=== PATIENT | female | born 1995 | race Caucasian/White ===

== ENCOUNTER 2025-02-14 09:24 | Inpatient (IN) ==
--- NOTE | 2025-02-14 09:31 | Emergency Department Note ---
History of Present Illness General Chief complaint: Chest Pain Stated complaint: CHEST PAIN, LIGHT HEADED, SOB Time Seen by Provider: 02/14/25 09:30 History of Present Illness Maximum Pain Intensity: 2 This is a 29-year-old female who presents to the emergency department via private vehicle with complaints of "chest pain, shortness of breath, lightheaded". The patient notes about 1 month ago she had COVID-19. This did cause her to be much less active for a period of time. She states that she has had exertional dyspnea for some time but last evening around 7:30 PM began with lightheadedness, dizziness, vision change, chest pain, shortness of breath. She notes that shortness of breath was much worse than previous. She states that she was seen here in the ED, CT scan of the chest was performed and she was diagnosed with pulmonary emboli. She was started on oral Eliquis. The patient notes that she called to establish a follow up this morning with S and was referred back for bilateral Doppler studies and further assessment. The patient still notes some vision change. She does note dizziness and lightheadedness. The chest pain and shortness of breath are still present. The patient does also note bilateral leg pain. The patient does note that over the past month her shoe size went from a 9.5-11 and then back down to 9.5. She does take oral contraceptives noting history of PCOS. She notes history of anxiety and depression. She also notes history of sleep apnea. No known drug allergies. No pertinent surgical history. Home Medications Medication Instructions Recorded Confirmed Type apixaban 5 mg tablet (Eliquis) 5 mg PO BID #30 tabs 02/14/25 02/14/25 Rx cholecalciferol (vitamin D3) 50 50 mcg PO DAILY 02/14/25 02/14/25 History mcg (2,000 unit) capsule (Vitamin D3) desogestrel 0.15 mg-ethinyl 1 tab PO DAILY 02/14/25 02/14/25 History estradiol 0.03 mg tablet (Isibloom) desvenlafaxine succinate 25 mg 25 mg PO DAILY 02/14/25 02/14/25 History tablet,extended release 24 hr fluticasone propionate 50 1 spray intranasal BID PRN 02/14/25 02/14/25 History mcg/actuation nasal Congestion spray,suspension loratadine 10 mg tablet (Claritin) 10 mg PO DAILY PRN Congestion 02/14/25 02/14/25 History Allergies Allergy/AdvReac Type Severity Reaction Status Date / Time pollen extracts Allergy Intermediate ITCHY Verified 02/14/25 00:50 EYES, SNEEZING, CONGESTION eggplant Allergy Mild ITCHY Verified 02/14/25 00:48 TONGUE Past Med/Surg History Problem List (Updated 02/14/25 @ 22:53 by Hermelindo Hector PA-C) Blurred vision, bilateral (Acute) Pulmonary embolism (Acute) Chest pain (Acute) Social History Smoking Status: Never smoker Second Hand Exposure: No; Do You Dip or Chew Tobacco: No; Tobacco Cessation Education Requested by Patient: No Hx Alcohol Use: No Hx Substance Use: No Preferred Language: Hungarian Communication Ability: Effective Sample Maker Required: No Beliefs That Will Affect Care: None Current Living Situation: Other Current Living Situation Comment: With roomate Other Information That Helps Us Care for You: No Feels Safe at Home: Yes Safety Concerns: Feels Safe At This Time Review of Systems A total of 10 systems reviewed and were otherwise negative Physical Exam Vital Signs Vital Signs - 24 hr 02/14/25 09:26 02/14/25 09:41 02/14/25 09:49 Temperature 36.4 C L Temperature Source Temporal Artery Scan Pulse Rate 89 87 Pulse Rate [Apical] Pulse Rhythm Regular Respiratory Rate 18 24 Respiratory Effort / Characteristics SOB on Exertion Blood Pressure 157/87 H Blood Pressure [Right Arm] Blood Pressure Mean 110 Blood Pressure Mean [Right Arm] Pulse Oximetry 95 98 Oxygen Delivery Method Room Air Room Air Sepsis Recent Fever Within 48 Hours No Sepsis New/Unexplained Change in Mental Status No Sepsis Action Taken by Nursing No Action Required 02/14/25 10:20 02/14/25 11:28 02/14/25 11:28 Temperature Temperature Source Pulse Rate 86 94 H Pulse Rate [Apical] 92 H Pulse Rhythm Respiratory Rate 23 23 Respiratory Effort / Characteristics Blood Pressure 141/68 H Blood Pressure [Right Arm] 141/68 H Blood Pressure Mean 86 Blood Pressure Mean [Right Arm] 92 Pulse Oximetry 97 97 Oxygen Delivery Method Room Air Room Air Sepsis Recent Fever Within 48 Hours Sepsis New/Unexplained Change in Mental Status Sepsis Action Taken by Nursing 02/14/25 11:30 02/14/25 11:40 Temperature Temperature Source Pulse Rate 83 86 Pulse Rate [Apical] Pulse Rhythm Respiratory Rate 16 23 Respiratory Effort / Characteristics Blood Pressure 130/66 138/76 Blood Pressure [Right Arm] Blood Pressure Mean 83 95 Blood Pressure Mean [Right Arm] Pulse Oximetry 97 97 Oxygen Delivery Method Room Air Room Air Sepsis Recent Fever Within 48 Hours Sepsis New/Unexplained Change in Mental Status Sepsis Action Taken by Nursing VITAL SIGNS - Vital signs and nursing notes were reviewed. Hypertensive, otherwise stable and afebrile. GENERAL -29-year-old female appearing her stated age who is in no acute distress. Communicates well with provider and answers questions appropriately. SKIN - Without rashes. No meningeal or petechial rash. HEAD - NC/AT. EYES - PERRL with EOMI bilaterally. Sclera anicteric. EARS - No deformities of external structures noted on gross examination bilaterally. External auditory canals without discharge or otorrhea. Tympanic membranes pearly corbin without retraction or bulging. No fluid or purulent material visualized behind the TM. Handle of malleus, umbo, cone of light, pars tensa/flaccid all easily visualized. NOSE - Midline and without cyanosis. No epistaxis or purulent drainage noted. MOUTH/OROPHARYNX - Without perioral cyanosis. Buccal mucosa pink and moist and without leukoplakia. Tongue midline with equal elevation of palate bilaterally. No tonsillar hypertrophy, erythema, or exudates noted. Good dentition noted. NECK - Neck with FROM. Supple to palpation. No lymphadenopathy noted. No nuchal rigidity. LUNGS - Chest wall symmetric without accessory muscle use, intercostals retractions, or central cyanosis. Normal vesicular breath sounds CTA B/L. No wheezes, rales, or rhonchi appreciated. CARDIAC - RRR with S1/S2. No murmur, rubs, or gallops appreciated. ABDOMEN - Abdominal contour normal without pulsations or visible masses. BS normoactive all four quadrants. No tenderness, palpable masses, hepatosplenomegaly, or ascites noted. EXTREMITIES - No clubbing or peripheral cyanosis. +5/5 strength noted in UE/LE bilaterally. NEUROLOGIC - Cranial nerves II through XII grossly intact. PSYCH -alert, oriented and pleasant on exam Course Administered Medications Apixaban (Apixaban 5 Mg Tablet) 5 mg PO BID ERIC Stop: 03/16/25 20:59 Last Admin: 02/14/25 20:12 Dose: 5 mg Documented By: VK Discontinued Medications Apixaban (Apixaban 5 Mg Tablet) 5 mg PO ONE ONE Stop: 02/14/25 13:21 Last Admin: 02/14/25 13:53 Dose: 5 mg Documented By: CEF Acetaminophen (Ofirmev) 1,000 mg in 100 mls @ 400 mls/hr IV NOW STA Stop: 02/14/25 13:47 Last Infusion: 02/14/25 14:22 Dose: Infused Documented By: Admin: 02/14/25 13:55 Dose: 400 mls/hr Documented By: CEF Ioversol (Optiray 320 125ml) 120 ml IV ONCE ONE Stop: 02/14/25 11:05 Last Admin: 02/14/25 11:05 Dose: 120 ml Documented By: AMY Miscellaneous (Order Awaiting Action) 1 each N/A QS ERIC Stop: 03/16/25 15:59 Last Admin: 02/14/25 18:31 Dose: Not Given Documented By: [facility] Medical Decision Making Laboratory Data 02/14/25 16:24 02/14/25 16:24 Lab Results 02/14/25 Range/Units 09:48 WBC 10.30 (4.8-10.8) K/ul RBC 4.90 (4.20-5.40) M/uL Hgb 13.2 (12.0-16.0) g/dl Hct 40.9 (37.0-47.0) % MCV 83.5 (80.0-100.0) fL MCH 26.9 (25.0-34.0) pg MCHC 32.3 (32.0-36.0) g/dL RDW Std Deviation 39.6 (36.4-46.3) fL RDW Coeff of Filiberto 13.1 (11.5-14.5) % Plt Count 352 (130-400) K/uL MPV 9.6 (9.4-12.4) fL Immature Gran % (Auto) 0.5 % Neut % (Auto) 64.0 % Lymph % (Auto) 27.3 % [place] % (Auto) 6.6 % Eos % (Auto) 1.4 % Baso % (Auto) 0.2 % Neut # (Auto) 6.60 H (1.40-6.50) K/uL Lymph # (Auto) 2.81 (1.20-3.40) K/uL [place] # (Auto) 0.68 H (0.11-0.59) K/uL Eos # (Auto) 0.14 (0.00-0.50) K/uL Baso # (Auto) 0.02 (0.00-0.20) K/uL Immature Gran # (Auto) 0.05 (0.01-0.20) K/uL PT 10.3 (9.0-12.0) Seconds INR 1.0 (0.9-1.1) APTT 28 (21-31) Seconds PTT Ratio 1.0 Sodium 137 (136-145) mmol/L Potassium 4.1 (3.5-5.1) mmol/L Chloride 103 (98-107) mmol/L Carbon Dioxide 24 (21-32) mmol/L Anion Gap 10 (3-11) BUN 9 (6-23) mg/dl Creatinine 0.54 L (0.6-1.2) mg/dl Est Cr Clr Drug Dosing 227.8 ml/min eGFR 126.15 BUN/Creatinine Ratio 16.7 (10-20) Glucose 85 (70-99(Fasting)) mg/dl Calcium 9.6 (8.6-10.3) mg/dl Magnesium 2.0 (1.7-2.4) mg/dl Total Bilirubin 0.3 (0.2-1.0) mg/dl AST 14 (13-39) U/L ALT 15 (7-52) U/L Alkaline Phosphatase 60 (34-104) U/L Troponin I High Sens < 2.3 (0-14) pg/ml B-Natriuretic Peptide 8 (0-100) pg/ml Total Protein 7.5 (6.0-8.3) gm/dl Albumin 4.1 (3.4-5.0) gm/dl Globulin 3.4 (2.5-4.0) gm/dl Albumin/Globulin Ratio 1.2 (0.9-2) TSH 8.365 H (0.300-4.500) uIu/ml Free T4 0.82 (0.61-1.60) ng/dl HCG, Qual Negative (Negative) Lyme Disease Screen Negative (Negative) Imaging Data Radiologist's Impression: Head CTA 02/14/25 09:41 CT angio head wo/w CLINICAL HISTORY: dizziness, lightheadedness, vision change -PE COMPARISON STUDY: None FINDINGS: Noncontrast head CT: No intracranial hemorrhage seen. No mass effect, midline shift, or hydrocephalus. No skull fracture seen. Visualized paranasal sinuses and mastoid air cells are clear. CTA: The distal internal carotid arteries and vertebral arteries are patent. Basilar artery is patent. Anterior, middle, and posterior cerebral arteries are patent bilaterally. No intracranial aneurysm seen. Cerebral venous sinuses opacify normally. IMPRESSION: 1. No acute findings. 2. Unremarkable CTA of the brain. ACT 112: Negative or not required by law. Electronically signed by: Ranjan Terry M.D. 02/14/2025 11:26 AM Neck CTA 02/14/25 09:41 CT angio neck with con CLINICAL HISTORY: 29 years-old Female with dizziness, lightheadedness, vision change -PE. Acute dizziness COMPARISON STUDY: CTA head of same day TECHNIQUE: Following the IV administration of 120 mL of Optiray, CT angiogram of the neck was performed from the aortic arch to the skull base. Images are reviewed in the axial, sagittal, and coronal planes. 3-D MIPS images are created and assessed. IV contrast was administered without complication. All measurements were calculated based on NASCET criteria. A dose lowering technique was utilized adhering to the principles of ALARA. CT DOSE: 1240.92 mGy.cm FINDINGS: Three-vessel morphology of the thoracic aortic arch. Patency of the innominate and imaged subclavian arteries. The common and imaged internal carotid arteries are widely patent. The right vertebral artery is dominant. Vertebral arteries are widely patent. There is no aneurysm, dissection, high- grade stenosis or arterial occlusion. Lung apices are clear. Unremarkable soft tissues. No acute fracture. IMPRESSION:Unremarkable CTA of the neck. ACT 112: Negative or not required by law. The above report was generated using voice recognition software. It may contain grammatical, syntax or spelling errors. Electronically signed by: Davonte Juan M.D. 02/14/2025 11:44 AM Venous Doppler Study 02/14/25 09:41 BILATERAL LOWER EXTREMITY VENOUS DOPPLER CLINICAL HISTORY: Bilateral leg pain, Pulmonary embolism. COMPARISON STUDY: No previous studies for comparison. TECHNIQUE: Sonography of the deep venous system of the bilateral lower extremities was performed. Compression and augmentation were evaluated. FINDINGS: The bilateral common femoral, superficial femoral and popliteal veins were compressible. Augmentation was normal. Flow was shown within the deep calf vessels although the calf vessels were suboptimally assessed due to suboptimal penetration. IMPRESSION: Suboptimal evaluation of the calf vessels but no evidence of deep venous thrombus within the bilateral lower extremities. ACT 112: Negative or not required by law. Electronically signed by: Braydon Cardoza M.D. 02/14/2025 1:11 PM MDM Narrative Patient was seen and evaluated as above in room B04b. Review was performed of nursing notes and vital signs. I did review pertinent previous visits and patient history. After obtaining a thorough history and physical examination the above work up was performed. Patient presents to us today with the above symptoms. I did review the CT angio of the chest performed last evening which did show tiny subsegmental pulmonary emboli involving left lower pulmonary arteries. No evidence of heart strain by CTA. Patient returns for further assessment. She does have headache, dizziness, vision change which began around 7:30 PM last evening, around the same time as the chest pain and shortness of breath. On my assessment there are no focal deficits. NIHSS is 0. GCS is 15. Options of care were discussed with the patient. IV access was established. Labs were drawn. [id number]: I did call and speak to current reading radiologist, Dr. Cardoza. My plan is CTA head and neck with a Noncon head first. We will hold off on rescanning the chest at this time. EKG per my interpretation reveals normal sinus rhythm with sinus arrhythmia at rate of 85 bpm. QTc 416. QRS 78. No ST elevation on this rhythm tracing. I did compare this to the EKG from yesterday at 2247 HRS. No significant change was found. No leukocytosis or concerning anemia. Coags normal. No emergent metabolic disturbance. Troponin within normal range. BNP normal. hCG negative. TSH elevated with a normal free T4. Urinalysis does not reveal convincing evidence of infection, will note 1+ leukocytes and 1+ bacteria. Lyme screen negative. CT angios of the head and neck ordered to further assess for potential paradoxical embolus/further assess patient's dizziness/lightheadedness/headache and vision change. These returned essentially negative. I discussed options with the patient. At this time I do believe is reasonable to proceed with further evaluation and management in inpatient setting. Patient to benefit from TTE with bubble study and MRI brain if possible. Case discussed with hospitalist service. Please refer to further documentation regarding her stay. GCS: 15 In the evaluation and treatment of this patient the following differential diagnoses were entertained: CVA, paradoxical embolus, intracranial hemorrhage, NE, PE, heart failure, among others Impression & Plan Chest pain, Pulmonary embolism, Blurred vision, bilateral Discharge Plan Visit Data Chief Complaint: Chest Pain Stated Complaint: CHEST PAIN, LIGHT HEADED, SOB ED Provider: Colette Marlow ED Midlevel Provider: Hermelindo Hector Discharge Problem: Chest pain, Pulmonary embolism, Blurred vision, bilateral Patient Disposition: Admitted As Inpatient Condition: Good Discharge Instructions Interventions: ED Discharge Assessment Last Done: 02/14/25 15:00
[2025-02-14 10:00] LABS: Hematocrit (blood only) 40.9 % (37.0-47.0); Hemoglobin 13.2 g/dl (12.0-16.0); Immature Granulocytes # (auto) 0.05 K/uL (0.01-0.20); Immature Granulocytes % (auto) 0.5 %; Mean Corpuscular Hemoglobin 26.9 pg (25.0-34.0); Mean Corpuscular Volume 83.5 fL (80.0-100.0); Platelet Count 352 K/uL (130-400); RDW Standard Deviation 39.6 fL (36.4-46.3); Red Blood Count 4.90 M/uL (4.20-5.40); White Blood Count 10.30 K/ul (4.8-10.8)
[2025-02-14 10:22] LABS: Alanine Aminotransferase 15 U/L (7-52); Albumin Globulin Ratio 1.2 (0.9-2); Albumin Level 4.1 gm/dl (3.4-5.0); Alkaline Phosphatase 60 U/L (34-104); Anion Gap 10 (3-11); Bilirubin,Total 0.3 mg/dl (0.2-1.0); Blood Urea Nitrogen 9 mg/dl (6-23); Calcium 9.6 mg/dl (8.6-10.3); Carbon Dioxide 24 mmol/L (21-32); Chloride 103 mmol/L (98-107); Creatinine Clr Calc Pharmacy 227.8 ml/min; Globulin 3.4 gm/dl (2.5-4.0); Glucose 85 mg/dl (70-99(Fasting)); Magnesium 2.0 mg/dl (1.7-2.4); Potassium 4.1 mmol/L (3.5-5.1); Sodium 137 mmol/L (136-145); Total Protein 7.5 gm/dl (6.0-8.3)
[2025-02-14 10:29] LABS: Pregnancy Test, Serum Negative (Negative)
[2025-02-14 10:36] LABS: Thyroid Stimulating Hormone 8.365 uIu/ml (0.300-4.500)
[2025-02-14 10:41] LABS: INR 1.0 (0.9-1.1); Partial Thromboplastin Time 28 Seconds (21-31); Prothrombin Time 10.3 Seconds (9.0-12.0)
[2025-02-14] MEDS: OPTIRAY 320 125ml IV ONE (11:05)
[2025-02-14 11:11] LABS: T4 Free Thyroxine 0.82 ng/dl (0.61-1.60)
--- NOTE | 2025-02-14 11:27 | CT Scan Report ---
CT angio head wo/w CLINICAL HISTORY: dizziness, lightheadedness, vision change -PE COMPARISON STUDY: None FINDINGS: Noncontrast head CT: No intracranial hemorrhage seen. No mass effect, midline shift, or hydrocephalus . No skull fracture seen. Visualized paranasal sinuses and mastoid air cells are clear. CTA: The distal internal carotid arteries and vertebral arteries are patent. Basilar artery is patent . Anterior, middle, and posterior cerebral arteries are patent bilaterally. No intracranial aneurysm seen. Cerebral venous sinuses opacify normally. IMPRESSION: 1. No acute findings. 2. Unremarkable CTA of the brain. ACT 112: Negative or not required by law. Electronically signed by: Ranjan Terry M.D. 02/14/2025 11:26 AM
--- NOTE | 2025-02-14 11:46 | CT Scan Report ---
CT angio neck with con CLINICAL HISTORY: 29 years-old Female with dizziness, lightheadedness, vision change -PE. Acute di zziness COMPARISON STUDY: CTA head of same day TECHNIQUE: Following the IV administration of 120 mL of Optiray, CT angiogram of the neck was perform ed from the aortic arch to the skull base. Images are reviewed in the axial, sagittal, and coronal pl anes. 3-D MIPS images are created and assessed. IV contrast was administered without complication. Al l measurements were calculated based on NASCET criteria. A dose lowering technique was utilized adhe ring to the principles of ALARA. CT DOSE: 1240.92 mGy.cm FINDINGS: Three-vessel morphology of the thoracic aortic arch. Patency of the innominate and imaged s ubclavian arteries. The common and imaged internal carotid arteries are widely patent. The right vert ebral artery is dominant. Vertebral arteries are widely patent. There is no aneurysm, dissection, hig h-grade stenosis or arterial occlusion. Lung apices are clear. Unremarkable soft tissues. No acute fr acture. IMPRESSION:Unremarkable CTA of the neck. ACT 112: Negative or not required by law. The above report was generated using voice recognition software. It may contain grammatical, syntax o r spelling errors. Electronically signed by: Davonte Juan M.D. 02/14/2025 11:44 AM
--- NOTE | 2025-02-14 13:12 | Ultrasound Report ---
BILATERAL LOWER EXTREMITY VENOUS DOPPLER CLINICAL HISTORY: Bilateral leg pain, Pulmonary embolism. COMPARISON STUDY: No previous studies for comparison. TECHNIQUE: Sonography of the deep venous system of the bilateral lower extremities was performed. Co mpression and augmentation were evaluated. FINDINGS: The bilateral common femoral, superficial femoral and popliteal veins were compressible. A ugmentation was normal. Flow was shown within the deep calf vessels although the calf vessels were rios boptimally assessed due to suboptimal penetration. IMPRESSION: Suboptimal evaluation of the calf vessels but no evidence of deep venous thrombus within the bilateral lower extremities. ACT 112: Negative or not required by law. Electronically signed by: Braydon Cardoza M.D. 02/14/2025 1:11 PM
--- NOTE | 2025-02-14 13:40 | Electrocardiogram Report ---
Test Reason : Blood Pressure : */* mmHG Vent. Rate : 85 BPM Atrial Rate : 85 BPM P-R Int : 140 ms QRS Dur : 78 ms QT Int : 350 ms P-R-T Axes : -19 -11 -13 degrees QTcB Int : 416 ms Normal sinus rhythm with sinus arrhythmia Inferior infarct , age undetermined Abnormal ECG When compared with ECG of 13-Feb-2025 22:47, (unconfirmed) Inferior infarct is now Present Confirmed by Kit Saeed ([id number]) on 02/14/2025 1:40:44 PM Referred By: REFERRED SELF Confirmed By: Kit Saeed
[2025-02-14] MEDS: APIXABAN 5 MG TABLET PO ONE (13:53)
[2025-02-14] MEDS: ACETAMINOPHEN 1,000 MG/100 ML VIAL IV STA (13:55)
--- NOTE | 2025-02-14 15:15 | History & Physical Report ---
"Date of Service February 14, 2025 Assessment & Plan (1) Pulmonary embolism: (2) Blurred vision, bilateral: (3) Chest pain: Plan ##Pulmonary embolism|blurry vision|questionable TIA: CTA chest with tiny subsegmental pulmonary emboli LLL pulmonary arteries with no evidence of R heart strain, BL lower ext venous doppler: no evidence of DVT, CTA head/neck unremarkable with no acute findings -admit to PCU, NIHSS QS -MRI of brain -TTE with bubble study -Eliquis 5mg po BID -consult neurology pending MRI results -A1C, lipid profile am ##chest pain -in setting of diagnosed PE -troponin neg, BNP neg -EKG prn with chest pain #depression/anxiety -cont desvenlaxine, may bring in and have labeled per pharmacy for administration ##Increased TSH level -TSH 8.365 -FT4 0.82 -follow upon at d/c and repeat in 4-6 weeks ##sleep apnea -CPAP at hs Admission and Anticipated Discharge Date Admission Date: 02/14/25 History of Present Illness Chief Complaint: Chest pain, ECHEVERRIA, blurry vision Primary Care Provider: Shayla Reddy MD Dorita is a 29-year-old female with past medical history of pulmonary embolism, PCOS, anxiety/depression, sleep apnea that presented to [facility] emergency department with complaints of chest pain, shortness of breath more noticeable with exertion, lightheadedness and blurry vision. She was seen last evening (02/13/25)-1930, at [facility] ED for similar complaints. She had a CTA of chest with diagnosis of pulmonary emboli and prescription for Eliquis. She called to schedule a follow up appointment with [facility] this am with reports of persistent symptoms and was referred into ED for further eval. She was dosed with Eliquis last evening and has not taken the prescription this am as she did not pick it up yet. States she primarily has ECHEVERRIA when walking, intermittent chest discomfort (worse on inspiration) and blurry vision. Describes vision as blurry when attempting to focus with distance. She does wear corrective lenses. She has a mild GROVES in the ED rating pain 3/10 on pain scale. No diplopia. She denies weakness of limbs, dysarthria, disorientation, gait issues, neuropathy. muscle weakness, scotoma or difficulty swallowing. She endorses a positive Covid 19 test last month. She did recover from the illness and had no complications. She takes estrogen based oral contraceptive due to hx of PCOS. She has a hx of depression and is prescribed desvenlafazine. Allergies Allergy/AdvReac Type Severity Reaction Status Date / Time pollen extracts Allergy Intermediate ITCHY Verified 02/14/25 00:50 EYES, SNEEZING, CONGESTION eggplant Allergy Mild ITCHY Verified 02/14/25 00:48 TONGUE Home Medications Medication Instructions Recorded Confirmed Type apixaban 5 mg tablet (Eliquis) 5 mg PO BID #30 tabs 02/14/25 02/14/25 Rx cholecalciferol (vitamin D3) 50 50 mcg PO DAILY 02/14/25 02/14/25 History mcg (2,000 unit) capsule (Vitamin D3) desogestrel 0.15 mg-ethinyl 1 tab PO DAILY 02/14/25 02/14/25 History estradiol 0.03 mg tablet (Isibloom) desvenlafaxine succinate 25 mg 25 mg PO DAILY 02/14/25 02/14/25 History tablet,extended release 24 hr fluticasone propionate 50 1 spray intranasal BID PRN 02/14/25 02/14/25 History mcg/actuation nasal Congestion spray,suspension loratadine 10 mg tablet (Claritin) 10 mg PO DAILY PRN Congestion 02/14/25 02/14/25 History Past Med/Surg History Problem List (Updated 02/14/25 @ 16:53 by DAT Mccann) Blurred vision, bilateral Pulmonary embolism (Acute) Chest pain (Acute) Social History Smoking Status: Never smoker Second Hand Exposure: No; Do You Dip or Chew Tobacco: No; Tobacco Cessation Education Requested by Patient: No Hx Alcohol Use: No Hx Substance Use: No Preferred Language: Occitan Communication Ability: Effective Plastic Fixture Builder Required: No Beliefs That Will Affect Care: None Current Living Situation: Other Current Living Situation Comment: With roomate Other Information That Helps Us Care for You: No Feels Safe at Home: Yes Safety Concerns: Feels Safe At This Time Review of Systems Review of Systems: All systems reviewed & are unremarkable except as noted in Subjective Physical Exam Physical Exam: GENERAL APPEARANCE: A&O. Sitting comfortably on stretcher. NAD. SKIN: Normal color without rashes or lesions. Normal turgor. HEENT: Head AT/NC. Buccal mucosa is moist and pink. NECK: No jugular venous distention. No thyroid enlargement. There is no lymphadenopathy. HEART: RRR without m/g/r LUNGS: Normal inspiratory effort. CTA without w/r/r. ABDOMEN: No guarding or rigidity. Normoactive BS in all four quadrants. Abdomen soft and NT. MSK: No bony gross/deformities throughout. ROM intact. EXTREMITIES: No edema, No peripheral cyanosis. Neuro: CN 2-12 grossly intact. No focal neuro deficits PSYCHIATRIC: Normal affect. Eye contact is good. Speech is normal rate and content. Responses are appropriate. Results & Data Results & Data Vital Signs (Past 12 Hours) Vital Signs Temp Pulse Pulse Resp BP BP Pulse Ox 02/14/25 15:00 83 22 126/77 95 02/14/25 14:00 85 21 150/85 H 96 02/14/25 13:56 91 H 28 H 145/88 H 95 02/14/25 11:40 86 23 138/76 97 02/14/25 11:30 83 16 130/66 97 02/14/25 11:28 94 H 23 141/68 H 97 02/14/25 11:28 92 H 23 141/68 H 97 02/14/25 10:20 86 02/14/25 09:49 87 24 98 02/14/25 09:26 36.4 C L 89 18 157/87 H 95 O2 Del Method 02/14/25 15:00 Room Air 02/14/25 14:00 Room Air 02/14/25 13:56 Room Air 02/14/25 11:40 Room Air 02/14/25 11:30 Room Air 02/14/25 11:28 Room Air 02/14/25 11:28 Room Air 02/14/25 10:20 02/14/25 09:49 Room Air 02/14/25 09:26 Room Air Laboratory Results Labs reviewed Code Status & VTE Plan VTE Prophylaxis Plan VTE Prophylaxis will be ordered: Yes Supervising Physician Co-Signing Physician Notes Patient seen and examined, chart reviewed, case discussed with DAT Talamantes and I agree with the assessment and plan as above except as otherwise noted Labs and images reviewed Dorita is a 29-year-old female history of PE, PCOS, anxiety/depression, CORINNE presented with chest pain/shortness of breath worsened with exertion, and blurry vision. She was seen 02/13 and evaluation showed PE. She was started on Eliquis and discharged home with follow-up to [facility]. She has continued to have chest discomfort and some blurry vision since when attempting to focus although no field cut/loss or diplopia. No weakness or focal neurologic deficits. CTAhead shows no acute finding, CTAneck with no acute findings and no critical stenosis Venous Doppler without obvious DVT Troponin is undetectable and EKG is sinus. She is not hypotensive or tachycardic Agree with above. MRI is pending, TTE with bubble study is pending. Other than her blurry vision she does not show any localizing/focal neurologic deficits. MRI is pending and we will follow this for definitive CVA rule out. Will continue Eliquis. CTAs were unremarkable as noted. She does not show signs of heart strain and agree with continuing Eliquis on admission. PG Care Time/CCT Total # of Minutes Spent Total Time Spent with Patient: Total time spent is greater than 50% in coordination of care (as documented) at patient's floor/unit and/or counseling patient: Coding Level of Care Code 06913 INT INP/OBS CARE 3/75MIN Diagnoses Pulmonary embolism I26.99 Blurred vision, bilateral H53.8 Chest pain R07.9"
[2025-02-14] MEDS ORDERED: POLYETHYLENE (MIRALAX) 17 GM PACK PO PRN (15:35)
[2025-02-14] MEDS ORDERED: MELATONIN 3 MG TAB PO PRN (15:35)
[2025-02-14] MEDS ORDERED: ACETAMINOPHEN 325 MG TAB PO PRN (15:35)
[2025-02-14] MEDS ORDERED: ONDANSETRON INJ 2 MG/ML 2 ML VIAL IV PRN (15:35)
[2025-02-14 17:28] LABS: Hematocrit (blood only) 42.6 % (37.0-47.0); Hemoglobin 13.8 g/dl (12.0-16.0); Mean Corpuscular Hemoglobin 27.3 pg (25.0-34.0); Mean Corpuscular Volume 84.4 fL (80.0-100.0); Platelet Count 345 K/uL (130-400); RDW Standard Deviation 40.0 fL (36.4-46.3); Red Blood Count 5.05 M/uL (4.20-5.40); White Blood Count 10.36 K/ul (4.8-10.8)
[2025-02-14 17:41] LABS: Creatinine Clr Calc Pharmacy 220.4 ml/min
[2025-02-14 19:44] LABS: Appearance Urine Clear (Clear); Glucose Urine UA Negative (Negative)
[2025-02-14 19:45] LABS: Bacteria Urine Automated 1+ (None Seen); Cast Urine Automated 0-2 /lpf (0-2); Epithelial Cell Urine Auto 0-2 /hpf (0-2); RBC Urine Automated 0-2 /hpf (0-2); WBC Urine Automated 0-5 /hpf (0-5)
[2025-02-14] MEDS: APIXABAN 5 MG TABLET PO SCH (20:12)
[2025-02-15 08:58] LABS: Cholesterol 160.0 mg/dl (0-200); HDL Cholesterol 53.0 mg/dl; Triglycerides 173.0 mg/dl (0-150)
[2025-02-15 09:00] LABS: Hemoglobin A1C 5.5 % (4.5-5.6)
--- NOTE | 2025-02-15 09:15 | Discharge Summary ---
Discharge Summary Date of Service February 15, 2025 Principal Dx & Hospital Course #1 = Principal Diagnosis (1) Pulmonary embolism: (2) Blurred vision, bilateral: (3) Chest pain: Fabien Kevin is a 29-year-old female with no prior history of blood clots, history of BMI 50.8 following with a weight change management analyst, and hypertension of approximately 2 weeks yet on pharmacotherapy who was diagnosed 02/13 with subsegmental PEs and who presented with shortness of breath/chest pain with concern for some blurry vision. She had blurry vision when trying to focus faraway, but no focal field cuts and no loss of near visual acuity. She did not have any extremity strength/sensory deficits, dysarthria, confusion, aphasia, or facial nerve deficits. Her vision was normal on 02/15/2025. Her EKG did not show ischemic changes, her troponin was undetectable, her BNP was undetectable. She was not hypoxic or tachycardic, although she did have some intermittent tachycardia around anxiety which immediately resolved when her anxiety passed. She was unable to tolerate an MRI due to extreme anxiety and claustrophobia and preferred to avoid this even with possible treatment with Ativan./Benefits of this were reviewed, as she had no other strokelike findings her symptoms had resolved and even if she got the MRI this would not rule out a TIA she preferred to defer this which was reasonable and shared decision making. She has a new diagnosis of hypertension and has a TTE pending to evaluate for PFO. She is anticoagulated and she notes no signs of vascular occlusion however given that TIA process while very unlikely was not definitively ruled out and with obesity and hypertension is comorbidities did prefer to start a baby aspirin daily for prevention. LDL was 72, adequately controlled. Her chest pain resolved and she did not have ongoing pleuritic pain at time of discharge. She is discharged follow-up with her PCP, and outpatient follow-up to neurology. To do as outpatient: 1. Follow-up with PCP. Continue Eliquis twice daily and aspirin 81 mg daily 2. Outpatient follow-up with neurology. Ongoing reassessment of her/benefits of aspirin prophylaxis in addition to Eliquis 3. Continue blood pressure monitoring, may need to start a antihypertensive in the near future. She is intermittently normotensive and her blood pressure often correlated with anxiety during admission and she had no blood pressures greater than 180 so was not recommended for pharmacologic treatment at time of hospitalization 4. Follow-up on final results of MARIO Chest pain, likely pleuritic in the setting of new PE PEs subsegmental. Treated with Eliquis Troponin negative, BNP normal, no EKG changes, no ongoing chest pain at discharge Blurry vision Some deficits with blurry vision on far gaze, no field cuts and no other focal neurologic deficits No evidence of occlusion on CTAhead/neck As above patient deferred MRI due to extreme claustrophobia and as CVA and also prefer to defer 24-hour CT given that this was not definitive for stroke, was unlikely that she would have a large territory involvement given resolved symptoms, and while unlikely CT and MRI would not have ruled out a TIA regardless Was continued on aspirin 81 mg with follow-up as outpatient to neurology Blood sugar was normal during admission Admission HPI Per Admitting Provider Dorita is a 29-year-old female with past medical history of pulmonary embolism, PCOS, anxiety/depression, sleep apnea that presented to [facility] emergency department with complaints of chest pain, shortness of breath more noticeable with exertion, lightheadedness and blurry vision. She was seen last evening (02/13/25)-1929, at [facility] ED for similar complaints. She had a CTA of chest with diagnosis of pulmonary emboli and prescription for Eliquis. She called to schedule a follow up appointment with [facility] this am with reports of persistent symptoms and was referred into ED for further eval. She was dosed with Eliquis last evening and has not taken the prescription this am as she did not pick it up yet. States she primarily has ECHEVERRIA when walking, intermittent chest discomfort (worse on inspiration) and blurry vision. Describes vision as blurry when attempting to focus with distance. She does wear corrective lenses. She has a mild GROVES in the ED rating pain 3/10 on pain scale. No diplopia. She denies weakness of limbs, dysarthria, disorientation, gait issues, neuropathy. muscle weakness, scotoma or difficulty swallowing. She endorses a positive Covid 19 test last month. She did recover from the illness and had no complications. She takes estrogen based oral contraceptive due to hx of PCOS. She has a hx of depression and is prescribed desvenlafazine. Discharge Exam General: A&Ox3. NAD. Cooperative. HEENT: Atraumatic, normocephalic. Pulm: CTAB A&P. -wheezes, -rales, -rhonchi. Symmetrical chest rise. No increased work of breathing. No respiratory distress. Cardiac: RRR, -mrg. Radial pulses intact and symmetrical. Abdominal: Nontender, nondistended, soft. BS present. CRANIAL NERVES: II: Pupils equal and reactive, no relative afferent pupillary defect, no VF cuts III, IV, : EOM intact, no gaze preference or deviation, no nystagmus. V: normal sensation in V1, V2, and V3 segments bilaterally VII: no asymmetry, no nasolabial fold flattening VIII: normal hearing to speech IX, X: normal palatal elevation, no uvular deviation XI: 5/5 head turn and 5/5 shoulder shrug bilaterally XII: midline tongue protrusion MOTOR: RUE: 5/5 Shoulder internal rotation, external rotation, flexion, extension, abduction, adduction 5/5 Elbow flexion/extension, wrist flexion/extension 5/5 primary grade teacher strength, finger flexion/extension, interosseus LUE: 5/5 Shoulder internal rotation, external rotation, flexion, extension, abduction, adduction 5/5 Elbow flexion/extension, wrist flexion/extension 5/5 primary grade teacher strength, finger flexion/extension, interosseus RLE: 5/5 to hip flexion/extension, kneeextension, ankle dorsiflexion/plantarflexion LLE: 5/5 to hip flexion/extension, knee extension, ankle dorsiflexion/plantarflexion SENSORY: Normal to touch in upper and lower extremities without deficit or asymmetry Discharge Plan Discharge Items Patient Disposition: Home - Self-Care Reason For Visit: BLURRY VISION, CHEST PAIN, ECHEVERRIA Discharge Diagnosis: Chest pain 2/2 PE, transient blurry vision Condition on Discharge: Good Activity: Per Instructions section Non-emergency contact: Primary Care Provider and Neurologist Call non-emergency contact if: you have any medication questions, your symptoms worsen and your pain is not controlled Follow-up/Referrals: Hector Perez MD [Physician] - Shayla Reddy MD [Primary Care Provider] - Diet: Regular Addtl Attending Provider Instructions: You are seen in the hospital for chest discomfort, shortness of breath, and a blurry vision when trying to focus far away without field cuts, focal extremity strength deficits, or focal extremity sensory deficits. During admission you underwent CT angiography of your head and neck which did not show any occlusions or abnormalities suggestive of stroke. An ultrasound of your legs did not show any evidence of recurrent or residual clots (deep vein thrombosis). Your CAT scan on 02/13 did show left lower lobe pulmonary emboli (blood clots in the lung). These are likely the cause of your shortness of breath and chest discomfort. No pneumonia or fluid overload was seen. You had a ultrasound of your heart performed, this was pending final read by radiology however you did not have ongoing chest pain and your heart markers (troponin) were normal/undetectable. A marker of heart stretch called BNP which can sometimes be seen due to heart strain caused by blood clots was normal. You did not show any strength or sensory deficits suggestive of stroke pathology. A paradoxic stroke cannot be definitively ruled out, the your CAT scan did not show evidence of stroke however stroke is not always seen on CAT scan. On shared decision making due to extreme claustrophobia and intolerance even with attempted sedation you prefer to avoid an MRI. A repeat 24-hour CAT scan was discussed but deferred. You do have a history of newly rising blood pressure although this was intermittently normal, and consistently below 180 in the hospital. It was recommended to follow-up as an outpatient with neurology. On shared decision making you were continued on a baby aspirin 81 mg daily and Eliquis on discharge. Your heart rate was normal, your blood pressure was not low, and your oxygen levels were normal during admission. If you develop any new or worsening symptoms including fever, chills, sweats, chest pain, chest pressure, difficulty breathing, uncontrolled nausea/vomiting, rash, wheezing, passing out or nearly passing out, bleeding, black/bloody bowel movements, or other new or concerning symptoms please call your primary care physician, or call 911 for re-evaluation in the emergency department if you are very concerned. Pending Studies at Discharge: Yes (TTEw/ bubble study read) Stand-Alone Forms: [employer], Smoking Cessation Medications and DC Order Prescriptions: New aspirin 81 mg tablet 81 mg PO DAILY Qty: 30 0RF Continued Eliquis 5 mg tablet 5 mg PO BID Qty: 30 2RF fluticasone propionate 50 mcg/actuation [place],Suspension 1 spray INTRANASAL BID PRN (Reason: Congestion) Rx Instructions: administer into each nostril loratadine [Claritin] 10 mg Tablet 10 mg PO DAILY PRN (Reason: Congestion) cholecalciferol (vitamin D3) [Vitamin D3] 50 mcg (2,000 unit) Capsule 50 mcg PO DAILY desvenlafaxine succinate 25 mg tablet extended release 24 hr 25 mg PO DAILY Discontinued desogestrel-ethinyl estradiol [Isibloom] 0.15-0.03 mg tablet 1 tab PO DAILY Discharge Orders: Discharge Order (Routine); Ordered 02/15/25 Ordered By: Betito Crisostomo Admission Data Admit Date/Time: 02/14/25 13:16 Attending Provider: Betito Crisostomo Admit Provider: Betito Crisostomo Primary Care Provider: Shayla Reddy Other Providers: Betito Crisostomo Other Interventions: Discharge Summary Assessment (RN) Last Done: 02/15/25 11:18 Hospital Stay Data Consultations 02/14/25 11:33 ED Decision to Admit Stat Diagnostic Imagining Performed 02/14/25 09:41 CT angio head wo/w Stat CT angio neck with con Stat US venous doppler LE BI Stat Discharge Instructions Given to Patient (Per Discharging Provider) You are seen in the hospital for chest discomfort, shortness of breath, and a blurry vision when trying to focus far away without field cuts, focal extremity strength deficits, or focal extremity sensory deficits. During admission you underwent CT angiography of your head and neck which did not show any occlusions or abnormalities suggestive of stroke. An ultrasound of your legs did not show any evidence of recurrent or residual clots (deep vein thrombosis). Your CAT scan on 02/13 did show left lower lobe pulmonary emboli (blood clots in the lung). These are likely the cause of your shortness of breath and chest discomfort. No pneumonia or fluid overload was seen. You had a ultrasound of your heart performed, this was pending final read by radiology however you did not have ongoing chest pain and your heart markers (troponin) were normal/undetectable. A marker of heart stretch called BNP which can sometimes be seen due to heart strain caused by blood clots was normal. You did not show any strength or sensory deficits suggestive of stroke pathology. A paradoxic stroke cannot be definitively ruled out, the your CAT scan did not show evidence of stroke however stroke is not always seen on CAT scan. On shared decision making due to extreme claustrophobia and intolerance even with attempted sedation you prefer to avoid an MRI. A repeat 24-hour CAT scan was discussed but deferred. You do have a history of newly rising blood pressure although this was intermittently normal, and consistently below 180 in the hospital. It was recommended to follow-up as an outpatient with neurology. On shared decision making you were continued on a baby aspirin 81 mg daily and Eliquis on discharge. Your heart rate was normal, your blood pressure was not low, and your oxygen levels were normal during admission. If you develop any new or worsening symptoms including fever, chills, sweats, chest pain, chest pressure, difficulty breathing, uncontrolled nausea/vomiting, rash, wheezing, passing out or nearly passing out, bleeding, black/bloody bowel movements, or other new or concerning symptoms please call your primary care physician, or call 911 for re-evaluation in the emergency department if you are very concerned. Total Time Total Time Spent Total Time Spent (In Minutes): 55 Coding Level of Care Code 65558 INP/OBS DISCH >30 MIN Diagnoses Pulmonary embolism I26.99 Blurred vision, bilateral H53.8 Chest pain R07.9
[2025-02-15] MEDS: DESVENLAFAXINE PO SCH (09:53)
[2025-02-15 11:21] VITALS: BP 119/68; PULSE 84; RESP 18; TEMP 98.1; O2SAT 95
--- NOTE | 2025-02-15 14:26 | XCELERA ---
[id number]
== END 2025-02-15 11:59 | disposition home or self-care (01) | DRG 176 ==
LOC: ED 09:24 → 2S 13:16